=== PATIENT | female | born 1980 | race Caucasian/White ===

== ENCOUNTER 2016-06-19 18:28 | Emergency (ER) | payer MEDICAID ==
[2016-06-19 18:42] VITALS: BP 152/62; PULSE 78; RESP 18; TEMP 98; O2SAT 96
--- NOTE | 2016-06-19 19:27 | UCPHY ---
H & P Time Seen by Provider: 06/19/16 18:59 Patient Type: New HPI/ROS: This patient injured her foot and Achilles region 2 days ago. She explains that she was caring toys down stairs or [place] slipped on another toe I sliding down multiple steps and falling with pain to the dorsal midfoot on the left side as well as posterior Achilles pain. She states that the symptoms are moderate baseline becomes more severe with walking. She has been icing elevate the in the extremity with mild improvement and notes no other exacerbating factors. She states that the pain waxes and wanes and is sharp at time in both areas. This is her 1st visit see clinician since the injury occurred. ROS: No numbness or tingling. No head injury. No neck or back pain No other injuries. 5 point ROS is otherwise negative Past Medical/Surgical History: Chronic low back pain with right-sided baseline sensory neuro deficits in the right leg. Smoking Status: Never smoked Physical Exam: Physical Exam Vital signs are normal. General: No acute distress HEENT: Atraumatic. Eyes: Pupils equal and react to light. Extraocular motions are intact. Lungs: No respiratory distress. Cardiac: Brisk capillary refill is intact throughout. Pulses are 2+ and symmetric in the affected extremity. Skin: No rash or pallor. Left ankle: Patient has a focal area of mild swelling and tenderness to the left Achilles. However, there is no evidence of complete rupture. Hernandez's test reveals persistent function of the Achilles. Left foot: Patient has dorsal tenderness to the midfoot with perhaps minimal swelling. No significant 5th metatarsal tenderness or tenderness elsewhere. No discoloration. Neuro: Alert and oriented x3 with no sensorimotor deficits. Initial differential diagnosis: Achilles strain, foot sprain, foot fracture Constitutional: Initial Vital Signs Temperature (C) 36.6 C 06/19/16 18:38 Heart Rate 78 06/19/16 18:38 Respiratory Rate 18 06/19/16 18:38 Blood Pressure 152/62 H 06/19/16 18:38 O2 Sat (%) 96 06/19/16 18:38 O2 Delivery Mode Room Air Allergies/Adverse Reactions: No Known Allergies Allergy (Unverified 06/19/16 18:38) Home Medications: Medication Instructions Recorded Hydrocodone/APAP 5/325 [[place] 1 - 2 tab PO Q4PRN PRN #6 tab 06/19/16 5/325 (*)] MDM/Departure - MDM Diagnostics: Foot x-ray: Mild DJD but no acute fracture . I reviewed this film but was officially read by Dr. Gamino I also discussed this with Dr. Gamino - radiologist appreciate no evidence of acute fracture ED Course/Re-evaluation: Due to the combination the Achilles injury and the foot sprain will place the patient in a walker boot. I counseled her regarding this. She will follow up with Orthopedics and limit activity in the meantime. - Depart Disposition: Home, Routine, Self-Care Clinical Impression: Strain of Achilles tendon Qualifiers: Encounter type: initial encounter Laterality: left Qualified Code(s): S86.012A - Strain of left Achilles tendon, initial encounter Sprain of foot, left Qualifiers: Encounter type: initial encounter Qualified Code(s): S93.602A - Unspecified sprain of left foot, initial encounter Condition: Good Instructions: Achilles Tendinitis (ED), Foot Sprain (ED) Additional Instructions: Diagnoses: 1. Left Achilles tendon strain 2. Foot sprain Plan: Ice 20 minutes at a time 3 times a day Ibuprofen-600 mg per 6 hours as needed for pain and Tylenol in addition if needed. Vicodin rather than Tylenol if her pain is severe. No driving, alcohol or come Vicodin. Follow up with orthopedic physician for further evaluation sometime in the next 5-10 days. Cane or crutches if needed. Limit activity as needed. Stand Alone Forms: Work Excuse Prescriptions: Hydrocodone/APAP 5/325 [[place] 5/325 (*)] 1 - 2 tab PO Q4PRN PRN #6 tab PRN Reason: Pain Referrals: [facility],. [Primary Care Provider] - As per Instructions Jama Vu MD [Medical Doctor] - As per Instructions - PQRS PQRS Measurement: NA
== END 2016-06-19 19:37 | disposition home or self-care (01) ==
LOC: CED 18:28
DX: S86.012A Strain of left Achilles tendon, initial encounter (principal); S93.602A Unspecified sprain of left foot, initial encounter; W10.9XXA Fall (on) (from) unspecified stairs and steps, initial encounter
CPT/HCPCS: 73630-PO; 99203-PO; G0463-PO; L4386

== ENCOUNTER 2017-09-13 16:44 | Emergency (ER) | payer MEDICAID ==
[2017-09-13] MEDS ORDERED: NS 1,000 ML IV ONE ×2 (16:47→16:55)
[2017-09-13] MEDS ORDERED: ONDANSETRON 4 MG/2 ML VIAL IVP ONE (16:47)
--- NOTE | 2017-09-13 16:47 | EDPHY ---
H & P Time Seen by Provider: 09/13/17 16:47 HPI/ROS: HPI CHIEF COMPLAINT: Epigastric abdominal pain, nausea/vomiting HISTORY OF PRESENT ILLNESS: 37-year-old female, she has a history of fibromyalgia, she presents emergency room with nausea vomiting and abdominal discomfort. Patient reports that for the past 2 days she has had nausea vomiting epigastric discomfort. States he cannot keep anything down. She was told she possibly has GERD/gastritis. She has been taking ranitidine. She decided come the emergency room tonight due to ongoing abdominal pain. Pain is located epigastric region it does not radiate anywhere. Burning in nature. It is worse after she drinks. She vomits after she drinks. Unable to tolerate p.o.. Denies any lower abdominal pain. Denies chest pain or shortness of breath. Denies any fever. Denies hematemesis. Denies being or urinary symptoms. No diarrhea. Past Medical History: Anxiety, stress, fibromyalgia Past Surgical History: Gallbladder removal, appendectomy, tubal ligation Social History: Smokes tobacco. Denies drugs or alcohol. Family History: Noncontributory ROS REVIEW OF SYSTEMS: A comprehensive 10 point review of systems is otherwise negative aside from elements mentioned in the history of present illness. Exam Constitutional nontoxic. No acute distress, triage nursing summary reviewed, vital signs reviewed, awake/alert. Eyes normal conjunctivae and sclera, EOMI, PERRLA. HENT normal inspection, atraumatic, moist mucus membranes, no epistaxis, neck supple/ no meningismus, no raccoon eyes. Respiratory clear to auscultation bilaterally, normal breath sounds, no respiratory distress, no wheezing. Cardiovascular rate normal, regular rhythm, no murmur, no edema, distal pulses normal. Gastrointestinal mild tender palpation epigastric, no rebound, no guarding, normal bowel sounds, no distension, no pulsatile mass. Genitourinary no CVA tenderness. Musculoskeletal no midline vertebral tenderness, full range of motion, no calf swelling, no tenderness of extremities, no meningismus, good pulses, neurovascularly intact. Skin pink, warm, & dry, no rash, skin atraumatic. Neurologic awake, alert and oriented x 3, AAOx3, moves all 4 extremities equally, motor intact, sensory intact, CN II-XII intact, normal cerebellar, normal vision, normal speech. Psychiatric normal mood/affect. Heme/Lymph/Immune no lymphadenopathy. Differential diagnosis includes but is not limited to and in no particular order : Bowel obstruction, appendicitis, gallbladder disease, diverticulitis, colitis , enteritis, perforated viscus, gastritis, GERD, esophagitis, urinary tract infection, pyelonephritis, kidney stones Medical Decision Making: Plan for this patient IV establishment IV fluid bolus 2 L normal saline, IV Zofran for nausea, IV Pepcid, chest x-ray and KUB for vomiting, EKG and troponin for epigastric pain. Check lipase. Re-evaluate. Re-evaluation: EKG interpretation by me on record in [employer] system. Impression time of EKG 1702, sinus rhythm rate of [address] elevation no ST depression no significant T-wave abnormalities. Nonischemic unremarkable EKG. ED x-ray chest one view and ED x-ray KUB negative for acute disease process. Patient's troponin noted to be negative. EKG nonischemic. Labs are reassuring. 194: Re-evaluation at this time she is feeling much better. Abdomen is soft nontender. She is not vomiting. Will proceed with p.o. Challenge. Additionally will prescribe her Zofran for nausea and vomiting, additionally she is on ranitidine I will add a PPI. Referred to GI for possible EGD peptic ulcer evaluation. At this time I do not feel that she needs any further imaging like CT scan of her abdomen pelvis as it is soft nontender. I did discussed return precautions with her she understands return emergency room she develops worsening abdominal pain fever vomiting. 2125: Patient be evaluated at this time. Patient resting comfortably. Abdomen soft nontender. She was able to p. O. Challenge well with fluids and crackers. She states she feels much better and she would like to go home. Referral given to GI. Additionally return precautions discussed with her she understands return emergency room she develops worsening abdominal pain fever vomiting Chest x-ray, KUB, EKG and labs reviewed. Patient understands. Source: Patient - Medical/Surgical History Other PMH: appy/back surg//GB - Social History Smoking Status: Never smoked Constitutional: Initial Vital Signs Temperature (C) 37.2 C 09/13/17 16:47 Heart Rate 86 09/13/17 16:47 Respiratory Rate 18 09/13/17 16:47 Blood Pressure 146/89 H 09/13/17 16:47 O2 Sat (%) 95 09/13/17 16:47 O2 Delivery Mode Room Air Allergies/Adverse Reactions: No Known Allergies Allergy (Verified 09/13/17 16:50) Home Medications: Medication Instructions Recorded DULoxetine 09/13/17 Ondansetron HCl [Zofran] 4 mg PO Q4-6PRN PRN #10 tablet 09/13/17 Pantoprazole Sodium [Protonix 40mg 40 mg PO DAILY #30 tab 09/13/17 (*)] Ranitidine HCl 09/13/17 Medical Decision Making - Diagnostics Imaging Results: Imaging Impressions Chest X-Ray 09/13/17 16:55 IMPRESSION: No evidence for acute cardiopulmonary abnormality. Abdomen X-Ray 09/13/17 16:56 Impression: Nonobstructive bowel gas pattern. - Data Points Laboratory Results: Laboratory Results 09/13/17 17:00 09/13/17 09/13/17 09/13/17 18:11 17:57 17:32 WBC RBC Hgb Hct MCV MCH MCHC RDW Plt Count MPV Neut % (Auto) Lymph % (Auto) Lee % (Auto) Eos % (Auto) Baso % (Auto) Nucleat RBC Rel Count Absolute Neuts (auto) Absolute Lymphs (auto) Absolute Monos (auto) Absolute Eos (auto) Absolute Basos (auto) Absolute Nucleated RBC Immature Gran % Immature Gran # POC Blood Source VENOUS Patient Temperature 37.0 DEGREES DEGREES POC VBG pH 7.48 H (7.31-7.42) POC VBG pCO2 29 mmHg L mmHg (40-44) POC VBG pO2 42 mmHg H mmHg (35-40) POC VBG HCO3 22 mEq/L mEq/L (22-26) POC VBG Total CO2 22 mEq/L mEq/L (21-27) POC VBG Base Excess -2.0 mEq/L mEq/L (-2.5-2.5) POC Mix VBG O2 Sat 82 % H % (65-75) POC Sodium 140 mEq/L mEq/L (135-145) POC Potassium 3.2 mEq/L L mEq/L (3.3-5.0) POC Chloride 106.0 mEq/L mEq/L (97-110) POC Total CO2 22 mEq/L mEq/L (22-31) POC BUN 5 mg/dL L mg/dL (7-23) POC Creatinine 0.7 mg/dL mg/dL (0.6-1.0) POC Glucose 88 mg/dL mg/dL (70-100) POC Lactic Acid Gregg 1.2 mmol/L mmol/L (0.7-2.1) POC Calcium 8.9 mg/dL mg/dL (8.5-10.4) POC Total Bilirubin 0.7 mg/dL mg/dL (0.1-1.4) POC AST 34 IU/L IU/L (14-46) POC ALT 24 IU/L IU/L (9-52) POC Alk Phosphatase 70 IU/L IU/L (38-126) POC Troponin I 0.00 ng/mL ng/mL (0.00-0.08) POC Total Protein 6.8 g/dL g/dL (6.3-8.2) POC Albumin 4.3 g/dL g/dL (3.5-5.0) Lipase 09/13/17 09/13/17 09/13/17 17:29 17:00 17:00 WBC 12.65 10^3/uL H 10^3/uL (3.80-9.50) RBC 4.65 10^6/uL 10^6/uL (4.18-5.33) Hgb 14.7 g/dL g/dL (12.6-16.3) Hct 43.2 % % (38.0-47.0) MCV 92.9 fL fL (81.5-99.8) MCH 31.6 pg pg (27.9-34.1) MCHC 34.0 g/dL g/dL (32.4-36.7) RDW 12.9 % % (11.5-15.2) Plt Count 320 10^3/uL 10^3/uL (150-400) MPV 10.7 fL fL (8.7-11.7) Neut % (Auto) 70.9 % % (39.3-74.2) Lymph % (Auto) 23.9 % % (15.0-45.0) Lee % (Auto) 4.5 % % (4.5-13.0) Eos % (Auto) 0.2 % L % (0.6-7.6) Baso % (Auto) 0.2 % L % (0.3-1.7) Nucleat RBC Rel Count 0.0 % % (0.0-0.2) Absolute Neuts (auto) 8.96 10^3/uL H 10^3/uL (1.70-6.50) Absolute Lymphs (auto) 3.02 10^3/uL H 10^3/uL (1.00-3.00) Absolute Monos (auto) 0.57 10^3/uL 10^3/uL (0.30-0.80) Absolute Eos (auto) 0.03 10^3/uL 10^3/uL (0.03-0.40) Absolute Basos (auto) 0.03 10^3/uL 10^3/uL (0.02-0.10) Absolute Nucleated RBC 0.00 10^3/uL 10^3/uL (0-0.01) Immature Gran % 0.3 % % (0.0-1.1) Immature Gran # 0.04 10^3/uL 10^3/uL (0.00-0.10) POC Blood Source Patient Temperature POC VBG pH POC VBG pCO2 POC VBG pO2 POC VBG HCO3 POC VBG Total CO2 POC VBG Base Excess POC Mix VBG O2 Sat POC Sodium POC Potassium POC Chloride POC Total CO2 POC BUN POC Creatinine POC Glucose POC Lactic Acid Gregg POC Calcium POC Total Bilirubin POC AST POC ALT POC Alk Phosphatase POC Troponin I 0.00 ng/mL ng/mL (0.00-0.08) POC Total Protein POC Albumin Lipase 60 IU/L IU/L (23-300) Medications Given: Discontinued Medications Famotidine (Pepcid) 20 mg IVP EDNOW ONE Stop: 09/13/17 16:56 Last Admin: 09/13/17 17:06 Dose: 20 mg Sodium Chloride (Ns) 1,000 mls @ 0 mls/hr IV ONCE ONE PRN Reason: Wide Open Stop: 09/13/17 16:48 Last Admin: 09/13/17 17:05 Dose: 1,000 mls Sodium Chloride (Ns) 1,000 mls @ 0 mls/hr IV ONCE ONE PRN Reason: Wide Open Stop: 09/13/17 16:56 Last Admin: 09/13/17 18:47 Dose: 1,000 mls Ondansetron HCl (Zofran) 4 mg IVP EDNOW ONE Stop: 09/13/17 16:48 Last Admin: 09/13/17 17:06 Dose: 4 mg Promethazine HCl (Phenergan) 6.25 mg IVP ONCE ONE Stop: 09/13/17 19:52 Last Admin: 09/13/17 19:55 Dose: 6.25 mg Point of Care Test Results: CBC CBC Collection Date 09/13/17 CBC Collection Time 17:36 WBC 12.2 RBC 4.77 HGB 14.9 HCT 45.0 PLT 349 Neut # 8.9 Neut 73.4 LYMPH # 2.9 LYMPH 23.7 Other WBC # 0.4 Other WBC 2.9 MCV 94.3 Chemistry 09/13/17 09/13/17 09/13/17 18:11 17:57 17:29 POC Sodium 140 mEq/L mEq/L (135-145) POC Potassium 3.2 mEq/L L mEq/L (3.3-5.0) POC Chloride 106.0 mEq/L mEq/L (97-110) POC Total CO2 22 mEq/L mEq/L (22-31) POC BUN 5 mg/dL L mg/dL (7-23) POC Creatinine 0.7 mg/dL mg/dL (0.6-1.0) POC Glucose 88 mg/dL mg/dL (70-100) POC Calcium 8.9 mg/dL mg/dL (8.5-10.4) POC Total Bilirubin 0.7 mg/dL mg/dL (0.1-1.4) POC AST 34 IU/L IU/L (14-46) POC ALT 24 IU/L IU/L (9-52) POC Alk Phosphatase 70 IU/L IU/L (38-126) POC Troponin I 0.00 ng/mL ng/mL 0.00 ng/mL ng/mL (0.00-0.08) (0.00-0.08) POC Total Protein 6.8 g/dL g/dL (6.3-8.2) POC Albumin 4.3 g/dL g/dL (3.5-5.0) Blood Gas/Lactic Acid-Arterial 09/13/17 17:32 POC Blood Source VENOUS Blood Gas/Lactic Acid-Venous 09/13/17 17:32 POC VBG pH 7.48 H (7.31-7.42) POC VBG pCO2 29 mmHg L mmHg (40-44) POC VBG pO2 42 mmHg H mmHg (35-40) POC VBG HCO3 22 mEq/L mEq/L (22-26) POC VBG Total CO2 22 mEq/L mEq/L (21-27) POC VBG Base Excess -2.0 mEq/L mEq/L (-2.5-2.5) POC Mix VBG O2 Sat 82 % H % (65-75) POC Lactic Acid Gregg 1.2 mmol/L mmol/L (0.7-2.1) Urine Collection Date 09/13/17 Collection Time 17:36 HCG Results Negative Urine Dip Collection Date 09/13/17 Collection Time 17:36 Specific [place] (1.002-1.030) 1.005 PH (5.0-7.5) 6.0 Leukocytes (Negative) Negative Nitrites (Negative) Negative Protein (Negative) Negative Glucose (Negative) Negative Ketones (Negative) Trace Urobilnogen (0.2-1.0 EU) 0.2 Bilirubin (Negative) Negative Blood (Negative) Trace Departure - Departure Disposition: Home, Routine, Self-Care Clinical Impression: Abdominal pain Qualifiers: Abdominal location: epigastric Qualified Code(s): R10.13 - Epigastric pain Condition: Good Instructions: Acute Abdominal Pain (ED) Additional Instructions: 1. Return to the emergency room if develops worsening abdominal pain fever or vomiting 2. Antacid medication as prescribed 3. Zofran if your vomiting. 4. Return if worse 5. Please call Gastroenterology make a follow-up appointment Referrals: [facility] [Other] - As per Instructions Michael Mckee MD [Medical Doctor] - As per Instructions Prescriptions: Ondansetron HCl [Zofran] 4 mg PO Q4-6PRN PRN #10 tablet PRN Reason: Nausea/Vomiting, Use 1st Pantoprazole Sodium [Protonix 40mg (*)] 40 mg PO DAILY #30 tab
[2017-09-13] MEDS ORDERED: FAMOTIDINE 20 MG/2 ML SDV IVP ONE (16:55)
--- NOTE | 2017-09-13 17:04 | CPEKG ---
Heart Rate: 77 RR Interval: 779 P-R Interval: 144 QRSD Interval: 78 QT Interval: 368 QTC Interval: 417 P Delight: 57 QRS Delight: 24 T Wave Delight: 40 EKG Severity - NORMAL ECG - EKG Impression: SINUS RHYTHM Electronically Signed By: Deondre Galvan 13-Sep-2017 22:43:51
[2017-09-13] MEDS ORDERED: PROMETHAZINE HCL 25 MG/ML INJ IVP ONE (19:51)
[2017-09-13 20:58] LABS: PLATELET COUNT 320 10^3/uL (150-400)
[2017-09-13 21:37] VITALS: BP 118/74
== END 2017-09-13 21:35 | disposition home or self-care (01) ==
LOC: CED 16:44
DX: R10.13 Epigastric pain (principal); Z90.49 Acquired absence of other specified parts of digestive tract; Z98.51 Tubal ligation status; F17.200 Nicotine dependence, unspecified, uncomplicated
CPT/HCPCS: 71045-PO; 74018-PO; 80053-PO; 83605-PO; 84484-PO; 96374; J2405; J2550

== ENCOUNTER 2017-11-18 18:17 | Emergency (ER) | payer MEDICAID ==
[2017-11-18 18:29] VITALS: BP 116/78
[2017-11-18] MEDS ORDERED: LET GEL TOPICAL 1 EA SYR TP ONE ×2 (18:31→18:54)
--- NOTE | 2017-11-18 19:15 | EDPHY ---
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 Today. She continued working when came in for wound care. She reports moderate pain she had mild bleeding that stopped after pressure. She has no other complaints. She came in by private vehicle with her spouse. ROS: Neuro: No numbness or tingling Cardiovascular: No pallor to the distal thumb Musculoskeletal: No difficulty moving the affected thumb No other injuries or complaints. 5 point ROS is otherwise negative Smoking Status: Never smoked Physical Exam: Physical Exam Vital signs are normal. General: No acute distress Cardiac: Brisk capillary refill is intact throughout. Skin: No rash or pallor. Left thumb: Patient has a 1.5 cm full-thickness laceration to the palmar aspect distal phalanx with no active bleeding. Subcutaneous tissues evident. There are no foreign bodies and direct examination. No nail bed injury. Neuro: Alert with no sensorimotor deficits in the affected thumb. Constitutional: Initial Vital Signs Temperature (C) 37.4 C 11/18/17 18:21 Heart Rate 94 11/18/17 18:21 Respiratory Rate 20 11/18/17 18:21 Blood Pressure 116/78 11/18/17 18:21 O2 Sat (%) 96 11/18/17 18:21 O2 Delivery Mode Room Air Allergies/Adverse Reactions: No Known Allergies Allergy (Verified 11/18/17 18:24) Home Medications: Medication Instructions Recorded DULoxetine 09/13/17 MDM/Departure - MDM Procedures: Digital block: After verbal consent, using a 50 50 mix of 0.5% Marcaine 2% plain lidocaine, 27 gauge needle, chlorhexidine scrub under sterile conditions- 3 injections were administered to the base of the affected finger, 8 mL with good effect. Patient tolerated this well. There were no complications. The wound is 1.5 cm, full-thickness. The wound was copiously irrigated with saline. The wound was explored for foreign bodies and none were found. The wound was prepped and draped in the normal sterile fashion. The wound was anesthetized using digital block-see above The edges were reapproximated using 5 running sutures using 4 0 Prolene with good hemostasis and cosmesis. The patient tolerated the procedure well. There were no complications ED Course/Re-evaluation: Discussion: Uncomplicated thumb laceration. - Depart Disposition: Home, Routine, Self-Care Clinical Impression: Thumb laceration Qualifiers: Encounter type: initial encounter Damage to nail status: without damage Foreign body presence: without foreign body Laterality: left Qualified Code(s): S61.012A - Laceration without foreign body of left thumb without damage to nail , initial encounter Condition: Good Instructions: Finger Laceration (ED) Additional Instructions: Diagnosis: Thumb laceration Plan: Keep the wound clean and dry for the next 2 days then clean daily with warm soapy water Return for suture removal in 10-12 days Ibuprofen Tylenol for pain as needed Return sooner for redness, discharge or other concerns for infection. Referrals: [facility] [Other] - As per Instructions
== END 2017-11-18 19:23 | disposition home or self-care (01) ==
LOC: CED 18:17
PROC: 0HQGXZZ Repair Left Hand Skin, External Approach (ICD-10-PCS; principal; 2017-11-18)
DX: S61.012A Laceration without foreign body of left thumb without damage to nail, initial encounter (principal); W26.9XXA Contact with unspecified sharp object(s), initial encounter; Y93.G1 Activity, food preparation and clean up; Y92.89 Other specified places as the place of occurrence of the external cause; Y99.2 Volunteer activity

== ENCOUNTER 2018-04-11 14:11 | Emergency (ER) | payer OTHER, MEDICAID ==
[2018-04-11] MEDS ORDERED: LET GEL TOPICAL 1 EA SYR TP ONE (14:36)
--- NOTE | 2018-04-11 15:19 | EDPHY ---
H & P Stated Complaint: dog bite to right hand ,[facility] Time Seen by Provider: 04/11/18 14:53 HPI/ROS: CHIEF COMPLAINT: Dog bite to thumb HISTORY OF PRESENT ILLNESS: This is a 37-year-old female, right-hand dominant, who presents after being bitten in the right thumb by a dog. 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 The dog's shots are up-to-date. Her tetanus is current. She reports pain with flexion of the thumb. No other injuries. The wound was vigorously cleaned immediately. REVIEW OF SYSTEMS: A ten system review of systems was performed and is negative with the exception of the items mentioned in the HPI. Past medical history: Fibromyalgia Past surgical history: Appendectomy, section, tubal ligation, cholecystectomy, back surgery Social history: She works at [employer]. She smokes cigarettes daily but is trying to cut back. Social alcohol use. General Appearance: Alert. Vital signs reviewed. Blood pressure 130/90. Focused exam performed. Neck: No lymphadenopathy, supple. Respiratory: Lungs are clear to auscultation; no wheezes, rales, or rhonchi. Cardiovascular: Regular rate and rhythm; no murmur, rub, or gallop. Skin: Warm and dry, no rashes on exposed skin, normal color. Extremities: For puncture wounds on the right thumb, 3 along the lateral aspect and 1 on the medial aspect, all at the level of the PIP. No active bleeding. Puncture wounds are tender to the touch. She does have full flexion , albeit with pain, and full extension at the MCP and PIP of the right thumb ( also of MCP,PIP,DIP of all 4 fingers in the right hand). Sensation is intact to light touch in 2 point discrimination overall for fingers but slightly decreased to light touch over the right thumb diffusely. There is some mild swelling of the right thumb. Full active range of motion of her right wrist and right elbow. Pulses: Right radial pulses 2+. Neurological: Alert and oriented. Moving all four extremities easily and equally. - Personal History LMP (Females 10-55): Now Current Tetanus Diphtheria and Acellular Pertussis (TDAP): Yes Tetanus Vaccine Date: 2016 - Medical/Surgical History Hx Asthma: No Hx Chronic Respiratory Disease: No Hx Diabetes: No Hx Cardiac Disease: No Hx Renal Disease: No Hx Cirrhosis: No Hx Alcoholism: No Hx HIV/AIDS: No Hx Splenectomy or Spleen Trauma: No Other PMH: appy/back surg//GB. Tubal. Fibromyalgia - Social History Smoking Status: Never smoked Constitutional: Initial Vital Signs Temperature (C) 36.7 C 04/11/18 14:31 Heart Rate 69 04/11/18 14:31 Respiratory Rate 16 04/11/18 14:31 Blood Pressure 130/90 H 04/11/18 14:31 O2 Sat (%) 96 04/11/18 14:31 O2 Delivery Mode Room Air Allergies/Adverse Reactions: No Known Allergies Allergy (Verified 04/11/18 14:35) Home Medications: Medication Instructions Recorded DULoxetine 09/13/17 Amoxicillin/Clavulanate Pot 875 mg PO BID #14 tab 04/11/18 [Augmentin 875 MG TAB (*)] Medical Decision Making ED Course/Re-evaluation: Puncture wounds secondary to dog bite right thumb. No obvious tendon injury but it is painful for her to flex and extend. Wounds were cleaned. Tube gauze dressing was applied for comfort. She is advised to follow up with a hand specialist. She is also advised watch closely for signs of infection. I have chosen to start her on Augmentin. I do not suspect a bony injury. There is currently no sign of infection. - Data Points Medications Given: Discontinued Medications Tetracaine/Epinephrine/Lidocaine (Let Gel Topical) 1 ea TP EDNOW ONE Stop: 04/11/18 14:37 Last Admin: 04/11/18 14:37 Dose: 1 ea Departure - Departure Disposition: Home, Routine, Self-Care Clinical Impression: Dog bite of hand Qualifiers: Encounter type: initial encounter Laterality: right Qualified Code(s): S61.451A - Open bite of right hand, initial encounter Condition: Good Instructions: Amoxicillin/Clavulanate Potassium (By mouth), Animal Bite (ED) Additional Instructions: Follow up with Dr. Dunn, hand specialist. Urine flow your male somewhat you to see a workman's compensation physician are may have a different referral for a hand specialist. I think it is important that you see a hand specialist. You want to keep your thumb mobile. I recommend that you be seen at the beginning of this coming week. Leave the bandage in place for the next 24 hr. You can remove it after that and apply a tailings worker dressing. Adult Pain & Fever Control: We recommend Acetaminophen (Tylenol) and Ibuprofen (Motrin,Advil) for pain and fever control. When fever is high or pain severe, both drugs can be used at the same time, but at different intervals. Please note the time differences. Your dose is: Acetaminophen 650mg every 4 to 6 hours Ibuprofen 400mg every 6-8 hours with food OR Note: do not take Acetaminophen with Hydrocodone (Vicodin, Lortab) or Oycodone (Percocet). These medications also contain Acetaminophen. No more than 3000mg of Acetaminophen should be taken in 24 hours (for an adult). Return for re-exam if you develop fever, redness, warmth, purulent drainage, increasing pain, any new or concerning symptoms. Watch carefully for any signs of infection. Referrals: ANDREW WOOD [Other] - As per Instructions Keanu Dunn MD [Medical Doctor] - As per Instructions Stand Alone Forms: Work Limited Duty, Work Comp Follow Up, Work Excuse Prescriptions: Amoxicillin/Clavulanate Pot [Augmentin 875 MG TAB (*)] 875 mg PO BID #14 tab
[2018-04-11 15:41] VITALS: BP 148/99
== END 2018-04-11 15:35 | disposition home or self-care (01) ==
LOC: CED 14:11
DX: S61.451A Open bite of right hand, initial encounter (principal); W54.0XXA Bitten by dog, initial encounter; Y99.0 Civilian activity done for income or pay
CPT/HCPCS: 99283-ER